=== PATIENT | female | born 1965 | race Caucasian/White ===

== ENCOUNTER → 2017-09-04 10:34 | Outpatient (CLI) | payer BC, SELFPAY ==
--- NOTE | 2017-09-04 10:39 | RAD_ITS ---
STUDY: X-RAY - RIGHT ANKLE REASON FOR EXAM: Pain without injury. TECHNIQUE: 3 view(s) of the ankle. COMPARISON: None. FINDINGS: Normal visualized distal tibia and fibula. Normal medial and lateral malleoli. There is a suspected small osteochondral lesion of the lateral aspect of the talar dome on the AP view. Normal visualized calcaneus. The visualized subtalar, talonavicular, calcaneocuboid and tarsal articulations are normal. The soft tissue structures are unremarkable. RAD/Ankle min 3 Views IMPRESSION: Suspected small osteochondral lesion of the lateral talar dome. Electronically Signed: Jonathan Watkins MD at 16:09 EST Tel , Service support ,
--- NOTE | 2017-09-04 10:55 | RAD_ITS ---
STUDY: X-RAY - LUMBOSACRAL SPINE REASON FOR EXAM: Female, 52 years old. Low back pain radiating into right leg. TECHNIQUE: 6 view(s) of the lumbosacral spine including lateral flexion and extension views were obtained. COMPARISON: None FINDINGS: Normal lumbar lordosis. There is no substantial scoliosis. There is normal alignment of the vertebrae. There is normal flexion and extension without abnormal motion. Normal vertebral bodies and endplates. There is minimal intervertebral disc space narrowing at L4-5 with small osteophytes. There is mild diffuse facet sclerosis. Normal bilateral sacral ala, sacroiliac joints, and visualized sacrum. Normal visualized soft tissue structures. RAD/L/S Spine Comp/w Bending Views IMPRESSION: Lumbar spondylosis at L4-5. No other significant abnormality. Electronically Signed: Javi Tellez MD at 16:36 EST , Service support ,
== END ==
PROVIDERS: Visit Provider Orthopaedic Surgery
DX: M25.571 Pain in right ankle and joints of right foot (principal); M54.10 Radiculopathy, site unspecified
CPT/HCPCS: 72114; 73610

== ENCOUNTER → 2018-12-01 09:19 | Outpatient (CLI) | payer OTHER, SELFPAY ==
--- NOTE | 2018-12-01 09:22 | BI_ITS ---
MAMMOGRAPHY - BILATERAL SCREENING REASON FOR EXAM: Female, 53 years old. Routine annual screening examination. PERTINENT HISTORY: Non-contributory. TECHNIQUE: Digital bilateral breast juliana (3D mammographic acquisition) in the CC and MLO projections. 2-D mediolateral oblique (MLO) and craniocaudad (CC) views of both breasts were obtained. CAD: Full Field Digital Mammography with Computer Added Detection was performed. COMPARISON: Comparison is made with prior study dated October 11, 2015 and August 15, 2010. FINDINGS: Breast Composition: The breasts are heterogeneously dense, which may obscure small masses. There are no dominant masses or suspicious calcifications. Stable appearance of the benign axillary lymph nodes. No other significant abnormalities are identified. There has been no significant change since the prior study. BI/SCREENING MAMM (CAD), BILAT IMPRESSION: Stable bilateral screening mammogram. Yearly follow-up mammogram recommended. (A) ASSESSMENT CATEGORY: BIRADS Category 2: Benign. A letter regarding these results will be sent to the patient by the facility within 30 days. Approximately 10% of breast cancers are not detected by mammography. A normal mammogram should not delay biopsy of a clinically suspicious abnormality. [id number] Electronically Signed: Kyle Davila, at 14:02 EDT , Service support ,
== END ==
PROVIDERS: Family Provider Student in an Organized Health Care Education/Training Program; PCP Student in an Organized Health Care Education/Training Program; Referring Provider Obstetrics & Gynecology Gynecology; Visit Provider Obstetrics & Gynecology Gynecology
DX: Z12.31 Encounter for screening mammogram for malignant neoplasm of breast (principal)
CPT/HCPCS: 77063; 77067

== ENCOUNTER → 2020-07-19 17:15 | Outpatient (CLI) | payer OTHER, SELFPAY | PROVIDERS: PCP Student in an Organized Health Care Education/Training Program | DX: Z11.59 Encounter for screening for other viral diseases (principal) | CPT/HCPCS: 87635; C9803; U0005; U0003 ==

== ENCOUNTER 2020-09-18 17:30 | Outpatient (RCR) | payer OTHER, SELFPAY ==
--- NOTE | 2020-08-28 10:14 | HP.PTEVAL_ITS ---
Patient's Visit Information CHARLES JEFFERSON is a 55 year old F referred to Physical Therapy by Dr. Royal Parker MD with a diagnosis of L shoulder Adhesive Capsulitis. Date of Evaluation: 08/25/20 Physical Therapist: Umberto Padilla DPT - Visit Plan Frequency: 3x /Week Duration: 4 Weeks Plan: Start with phase I/II. Progress HEP with focus on ROM, PUSH ROM. - Subjective Pt. is here today for her initial evaluation with diagnosis of Adhesive Capsulitis of L shoulder S/P DESTINY. Pt. reports ahving manipulation yesterday 08/24/20. Pt. reports being pleased with the amount of motion that she has gained. She reports that her nerve block is still wearing off. No N/T, but she has been noticing increased soreness as the day has progressed. YUMIKO: her dog pulling hard on his leash a fw times and it felt like my shoulder dislocated. This occured in Summer of last year, but was unable to get it fixed due to COVID conserns. Pt. like outdoor sports and would like to get back to these as tolerated including water skiing. Pt. also takes care of her daughter who has Downs and would like to be able to use her arm better to allow for improved tolerance with this. - Pain L shoulder Pain Intensity (Out of 10): 3 Pain Intensity Range: 0, 6 - Objective POSTURE: Pt. tends to keep L shoulder in guared posture, otherwise normal. PALPATION: Pt. is generally tender througout L shoulder, no pinpoint issues. NEURO: Pt. has normal senstation and normal DTR of BUEs. ROM: R shoulder- full without increase in symptoms. L shouder- AROM: flexion: 130deg, abd 120deg, functional ER C2, functional IR L5. PROM: flexion 155deg, abd 140deg, ER at 90deg 50deg, IR at 90deg 30deg. Pt. has leather painful endfeel at all motions. MMT: 4/5 throughout LUE. 5/5 RUE strength - Goals Goal 1:: LTG: Pt. to be I with HEP. Goal Time Frame: 4-6 Weeks Goal 2:: LTG: Pt. to have full AROM of L shoulder. Goal Time Frame: 2-4 Weeks Goal 3:: STG: Pt. to have full PROM of L shoulder. Goal Time Frame: 2 Weeks Goal 4:: STG: Pt. to sleep throughout the night without increase in symptoms. Goal Time Frame: 2 Weeks Goal 5:: LTG: Pt. to have good tolerance to all ADLs without increase insymptoms. Goal Time Frame: 4-6 Weeks Goal 6:: LTG: Pt. to have increased strength of L shoulder by 1/2 grade of all effected musculature. Goal Time Frame: 4-6 Weeks - Rehabilitation Potential Physical Therapy Diagnosis: Pt. has signs and symptoms consistent with L shoulder Adhesive Capsulitis S/P . Pt. has subsequent hypombility and weakness in her L shoulder and would benefit from PT to increase her ROM to full allowing for increased ability with all ADLs and household work. Rehabilitation Potential: Excellent - Anticipated Interventions Patient/Client Instruction: Educate patient on: Condition, Plan of Care, Risk Factors, Benefits of Fitness Program For the Purpose of:: To foster healthy habits, To improve decision making, To facilitate caregiver knowledge, To improve self management, To prevent re- injury, To improve ability to perform tasks related to life management, To improve tolerance to ADL's Therapeutic Exercise to Include: Strength training, Power training, Postural training, Flexibilty training, Passive ROM, Active ROM, Scapular Strength/Stabilization For the Purpose of:: To decrease pain, To decrease swelling/inflammation, To increase ROM, To improve nutrient delivery to tissue, To increase oxygenation perfusion, To improve muscle performance and motor function, To improve ability to perform ADL's, To increase tolerance to activity/condition/position, To improve health of tissue, To decrease soft tissue restriction, To increase flexibility/ROM Thank you for the opportunity to evaluate your patient. For Medicare and Medicare HMO plans, please review the plan of care and approve it. It will need to be FAXED BACK to us at [phone] for Medicare purposes. For Medicare only, by signing this I certify the plan of care. Please let me know if there are questions or concerns regarding this plan of care. Physician Sign ature: Date:
--- NOTE | 2020-09-19 09:44 | HP.PTDCSUM ---
It has been my pleasure to treat CHARLES JEFFERSON referred by Dr. Royal Parker MD, with the diagnosis of L shoulder Adhesive Capsulitis for a total of 9 visit(s). Discharge Date: 09/18/20 Please see the following information for a summary of their discharge status. Subjective: Pt. repoorts overall I am doing much better.' She has no pain at rest, but does have increased pain with reaching overhead and with lifting. She reprots beign HEP compliant. 90% better overall. L shoulder Pain Intensity (Out of 10): 0 % Improvement: 90 Objective/Function: ROM: L shoulder- AROM: flexion 172deg, abd 168deg, functional ER C7, functional IR L 1. PROM: flexion 175deg, adb 175deg, ER at 90deg 91deg, IR at 9d0eg 65deg. Pt. has mild pain at end rnages of IR, ER and flexion. MMT: Pt. has 5/5 strength in RUE throughout; L shoulder- flexion 5/5, abd 5-/5, ER 4/5, IR 5/5, ext 5/5. Pt. is overall doing well. She is having some soreness with end range over head and rotation motions. I want her to take a day off from end range stretching to let things calm down. Goal 1:: LTG: Pt. to be I with HEP. Goal Progress: Goal Met Goal 2:: LTG: Pt. to have full AROM of L shoulder. Goal Progress: Goal Met Goal 3:: STG: Pt. to have full PROM of L shoulder. Goal Progress: Goal Met Goal 4:: STG: Pt. to sleep throughout the night without increase in symptoms. Goal Progress: Goal Met Goal 5:: LTG: Pt. to have good tolerance to all ADLs without increase insymptoms. Goal Progress: Goal Met Goal 6:: LTG: Pt. to have increased strength of L shoulder by 1/2 grade of all effected musculature. Goal Progress: Goal Met Plan: DC to HEP at this point in time. Pt. is overall doing well. She has close to full ROM, but does have some tender with end ranges. She has some weakness with ER and abd motions of her L shoulder. Pt. to continue with stretching and strenthening with HEP as tolerated. Pt. will be DC from PT at this point intime. Discharge Comments: Pt. did well with PT with focus on end range of motion. She does have some tenderness with overhead motions and weakness with ER and abd. Pt. educated to continue with strengthening and ROM as tolerated all home. Pt. will be DC from PT at this point in time. If there are questions or concerns regarding this patient's physical therapy, please feel free to call me at [phone]. Thank you for the referral of this patient. Sincerely, MERCEDEZ NevesT
== END 2020-09-18 19:00 | disposition home or self-care (01) ==
LOC: PT 17:30
PROVIDERS: PCP Student in an Organized Health Care Education/Training Program; Referring Provider Orthopaedic Surgery; Visit Provider Orthopaedic Surgery
DX: M75.02 Adhesive capsulitis of left shoulder (principal)
CPT/HCPCS: 97110; 97161; 97164

== ENCOUNTER 2021-07-03 12:30 | Outpatient (RCR) | payer OTHER, SELFPAY ==
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
== END 2021-07-03 19:00 | disposition home or self-care (01) ==
LOC: PT 12:30
PROVIDERS: PCP Student in an Organized Health Care Education/Training Program
DX: M54.2 Cervicalgia (principal)
CPT/HCPCS: 97110; 97112; 97162